=== PATIENT | female | born 1985 | race American Indian/Alaskan Native ===

== ENCOUNTER 2016-07-28 03:58 | Emergency (ER) | payer SELFPAY ==
[2016-07-28 04:33] VITALS: BP 112/74
[2016-07-28 04:48] LABS: Basophils % (Auto) 0.5 % (0.0-1.8); Eosinophils % (Auto) 1.5 % (0.0-4.3); Hematocrit 39.2 % (30.3-42.9); Hemoglobin 13.2 gm/dl (10.1-14.3); Mean Corpuscular HGB Conc 34 % (30-34); Mean Corpuscular Hemoglobin 33 pg (28-32); Mean Corpuscular Volume 99 fl (79-97); Platelet Count 264 K/mm3 (140-440); Red Blood Count 3.96 M/mm3 (3.65-5.03); Red Cell Distribution Width 13.2 % (13.2-15.2); White Blood Count 6.5 K/mm3 (4.5-11.0)
[2016-07-28 05:02] LABS: Blood Urea Nitrogen 14 mg/dL (7-17); Calcium 8.4 mg/dL (8.4-10.2); Carbon Dioxide 26 mmol/L (22-30); Glucose 93 mg/dL (65-100); Potassium 3.8 mmol/L (3.6-5.0); Sodium 141 mmol/L (137-145)
[2016-07-28 05:11] LABS: Anion Gap 16 mmol/L
[2016-07-28 05:38] LABS: Urine Drugs of Abuse Note Disclamer
[2016-07-28 05:52] LABS: Bilirubin,Urine NEG (Negative); Blood,Urine NEG (Negative); Ketones,Urine NEG (Negative); Leukocyte Esterase,Urine NEG (Negative); Mucus,Urine 1+ /HPF; Nitrite,Urine NEG (Negative); Protein,Urine <15 mg/dL mg/dL (Negative)
--- NOTE | 2016-08-01 13:31 | ED Elopement Review ---
ED Pt Elopement review - Results review Lab results: Laboratory Tests 07/28/16 07/28/16 07/28/16 04:35 04:35 04:35 WBC 6.5 RBC 3.96 Hgb 13.2 Hct 39.2 MCV 99 H MCH 33 H MCHC 34 RDW 13.2 Plt Count 264 Lymph % (Auto) 27.0 [place] % (Auto) 8.2 H Eos % (Auto) 1.5 Baso % (Auto) 0.5 Lymph # 1.8 [place] # 0.5 Eos # 0.1 Baso # 0.0 Seg Neutrophils % 62.8 Seg Neutrophils # 4.1 Sodium 141 Potassium 3.8 Chloride 103.0 Carbon Dioxide 26 Anion Gap 16 BUN 14 Creatinine 0.7 Estimated GFR > 60 BUN/Creatinine Ratio 20.00 Glucose 93 Calcium 8.4 Urine Color Urine Turbidity Urine pH Ur Specific [place] Urine Protein Urine Glucose (UA) Urine Ketones Urine Blood Urine Nitrite Urine Bilirubin Urine Urobilinogen Ur Leukocyte Esterase Urine WBC (Auto) Urine RBC (Auto) U Epithel Cells (Auto) Hyaline Casts Urine Mucus Urine HCG, Qual Urine Opiates Screen Urine Methadone Screen Ur Barbiturates Screen Ur Phencyclidine Scrn Ur Amphetamines Screen U Benzodiazepines Scrn Urine Cocaine Screen U Marijuana (THC) Screen Drugs of Abuse Note Plasma/Serum Alcohol < 0.01 07/28/16 07/28/16 05:13 05:13 WBC RBC Hgb Hct MCV MCH MCHC RDW Plt Count Lymph % (Auto) [place] % (Auto) Eos % (Auto) Baso % (Auto) Lymph # [place] # Eos # Baso # Seg Neutrophils % Seg Neutrophils # Sodium Potassium Chloride Carbon Dioxide Anion Gap BUN Creatinine Estimated GFR BUN/Creatinine Ratio Glucose Calcium Urine Color Yellow Urine Turbidity Clear Urine pH 6.0 Ur Specific [place] 1.027 Urine Protein <15 mg/dl Urine Glucose (UA) Neg Urine Ketones Neg Urine Blood Neg Urine Nitrite Neg Urine Bilirubin Neg Urine Urobilinogen 2.0 Ur Leukocyte Esterase Neg Urine WBC (Auto) 2.0 Urine RBC (Auto) 2.0 U Epithel Cells (Auto) 6.0 Hyaline Casts 37 Urine Mucus 1+ Urine HCG, Qual Negative Urine Opiates Screen Presumptive negative Urine Methadone Screen Presumptive negative Ur Barbiturates Screen Presumptive negative Ur Phencyclidine Scrn Presumptive negative Ur Amphetamines Screen Presumptive positive U Benzodiazepines Scrn Presumptive negative Urine Cocaine Screen Presumptive negative U Marijuana (THC) Screen Presumptive positive Drugs of Abuse Note Disclamer Plasma/Serum Alcohol - Call Back decision Pt Call Back Decision: No action required
== END 2016-07-28 20:26 | disposition left against medical advice (07) ==
LOC: ED 03:58
DX: Z00.8 Encounter for other general examination (principal); Z53.21 Procedure and treatment not carried out due to patient leaving prior to being seen by health care provider
CPT/HCPCS: 36415; 80048; 80307; 81001; 81025; 85025; G0480; 80320

== ENCOUNTER 2019-01-20 09:02 | Emergency (ER) | payer MEDICARE, MEDICAID ==
[2019-01-20 09:52] LABS: Basophils % (Auto) 0.5 % (0.0-1.8); Eosinophils # (Auto) 0.1 K/mm3 (0.0-0.4); Eosinophils % (Auto) 1.4 % (0.0-4.3); Hematocrit 39.4 % (30.3-42.9); Hemoglobin 13.5 gm/dl (10.1-14.3); Lymphocytes # (Auto) 2.1 K/mm3 (1.2-5.4); Lymphocytes % (Auto) 37.4 % (13.4-35.0); Mean Corpuscular HGB Conc 34 % (30-34); Mean Corpuscular Volume 96 fl (79-97); Monocytes # (Auto) 0.5 K/mm3 (0.0-0.8); Monocytes % (Auto) 9.9 % (0.0-7.3); Platelet Count 342 K/mm3 (140-440); Red Blood Count 4.12 M/mm3 (3.65-5.03)
[2019-01-20 10:12] LABS: BUN/Creatinine Ratio 24; Blood Urea Nitrogen 19 mg/dL (7-17); Calcium 9.2 mg/dL (8.4-10.2); Hemolysis Index 11
[2019-01-20] MEDS ORDERED: HALDOL IM PRN (11:10)
[2019-01-20] MEDS ORDERED: ATIVAN IM PRN (11:10)
[2019-01-20] MEDS ORDERED: PROVENTIL IH PRN (11:10)
[2019-01-20] MEDS ORDERED: TYLENOL PO PRN (11:10)
--- NOTE | 2019-01-20 11:15 | Emergency Department Report ---
ED Psych HPI - General Chief Complaint: Psych Stated Complaint: NEED MEDS Time Seen by Provider: 01/20/19 10:01 Source: patient, RN notes reviewed Mode of arrival: Ambulatory Limitations: No Limitations - History of Present Illness Initial Comments: This is a pleasant 33-year-old female who was not known to this provider previously. The patient has a past medical history of bipolar disorder and possible psychosis. The patient presents to the ER today with a request for psychiatric evaluation. She states she has been off of her medications, which include lithium, for a few months. She is contemplating suicide. She is evasive about hallucinations. She reports no intentional overdose. She reports access to guns and firearms. She indicates no physical pain. Symptoms constant, painless, do not radiate anywhere, and reportedly did not have exacerbating or relieving factors. MD Complaint: suicidal ideation, feels depressed -: Gradual Associated Psychiatric Symptoms: suicidal ideation History of same: Yes Quality: constant Improves With: none Worsens With: none If Self Harm: admits thoughts of - Related Data Allergies Allergy/AdvReac Type Severity Reaction Status Date / Time ziprasidone HCl [From Geodon] Allergy Anaphylaxis Verified 01/20/19 09:03 ziprasidone mesylate Allergy Anaphylaxis Verified 01/20/19 09:03 [From Geodon] ED Review of Systems ROS: Stated complaint: NEED MEDS Other details as noted in HPI Comment: All other systems reviewed and negative Psychiatric: suicidal thoughts ED Past Medical Hx - Past Medical History Hx Psychiatric Treatment: Yes (Bipolar Schizophrenic) - Surgical History Past Surgical History?: No - Social History Smoking Status: Never Smoker Substance Use Type: Alcohol, Marijuana ED Physical Exam - General Limitations: No Limitations General appearance: alert, in no apparent distress, other (patient sleeping on stretcher one week ago to evaluate her initial) - Head Head exam: Present: atraumatic, normocephalic - Eye Eye exam: Present: normal appearance, EOMI. Absent: nystagmus - ENT ENT exam: Present: normal exam, normal orophraynx, mucous membranes moist, normal external ear exam - Neck Neck exam: Present: normal inspection, full ROM. Absent: tenderness, meningismus - Respiratory Respiratory exam: Present: normal lung sounds bilaterally. Absent: respiratory distress - Cardiovascular Cardiovascular Exam: Present: regular rate, normal rhythm, normal heart sounds. Absent: bradycardia, tachycardia, irregular rhythm, systolic murmur, diastolic murmur, rubs, gallop - GI/Abdominal GI/Abdominal exam: Present: soft. Absent: distended, tenderness, guarding, rebound, rigid, pulsatile mass - Extremities Exam Extremities exam: Present: normal inspection, full ROM, other (2+ pulses noted in the bilateral upper, lower extremities. Compartments soft. No long bony tenderness. The pelvis is stable.). Absent: pedal edema, joint swelling, calf tenderness - Back Exam Back exam: Present: normal inspection, full ROM. Absent: tenderness, CVA tenderness (R), CVA tenderness (L), paraspinal tenderness, vertebral tenderness - Neurological Exam Neurological exam: Present: alert, oriented X3, normal gait, other (Extraocular movements intact. Tongue midline. No facial droop. Facial sensation intact to light touch in the V1, V2, V3 distribution bilaterally. 5 and 5 strength in 4 extremities.. Sensation is intact to light touch in 4 extremities.). Absent: motor sensory deficit - Psychiatric Psychiatric exam: Present: suicidal ideation - Skin Skin exam: Present: warm, dry, intact, normal color. Absent: rash ED Course Vital Signs 01/20/19 09:10 Temperature 97.8 F Pulse Rate 87 Respiratory 20 Rate Blood Pressure 112/75 O2 Sat by Pulse 98 Oximetry - Reevaluation(s) Reevaluation #1: 01/20/19 11:43 [place] level unremarkable. Patient resting comfortably. At this point in time, the patient does not appear to have an immediate medical contraindication to psychiatric admission, evaluation, consultation and placement. Psychiatric team was informed. ED Medical Decision Making - Lab Data Result diagrams: 01/20/19 09:31 01/20/19 09:31 Vital Signs 01/20/19 09:10 Temperature 97.8 F Pulse Rate 87 Respiratory 20 Rate Blood Pressure 112/75 O2 Sat by Pulse 98 Oximetry Lab Results 01/20/19 01/20/19 01/20/19 Range/Units 09:31 09:31 09:31 WBC (4.5-11.0) K/mm3 RBC (3.65-5.03) M/mm3 Hgb (10.1-14.3) gm/dl Hct (30.3-42.9) % MCV (79-97) fl MCH (28-32) pg MCHC (30-34) % RDW (13.2-15.2) % Plt Count (140-440) K/mm3 Lymph % (Auto) (13.4-35.0) % [place] % (Auto) (0.0-7.3) % Eos % (Auto) (0.0-4.3) % Baso % (Auto) (0.0-1.8) % Lymph # (1.2-5.4) K/mm3 [place] # (0.0-0.8) K/mm3 Eos # (0.0-0.4) K/mm3 Baso # (0.0-0.1) K/mm3 Seg Neutrophils % (40.0-70.0) % Seg Neutrophils # (1.8-7.7) K/mm3 Sodium 139 (137-145) mmol/L Potassium 4.3 (3.6-5.0) mmol/L Chloride 101.5 (98-107) mmol/L Carbon Dioxide 24 (22-30) mmol/L Anion Gap 18 mmol/L BUN 19 H (7-17) mg/dL Creatinine 0.8 (0.7-1.2) mg/dL Estimated GFR > 60 ml/min BUN/Creatinine Ratio 24 % Glucose 88 (65-100) mg/dL Calcium 9.2 (8.4-10.2) mg/dL Total Creatine Kinase (30-135) units/L HCG, Qual (Negative) Salicylates < 0.3 L (2.8-20.0) mg/dL Acetaminophen < 5.0 L (10.0-30.0) ug/mL Plasma/Serum Alcohol (0-0.07) % 01/20/19 01/20/19 01/20/19 Range/Units 09:31 09:31 09:31 WBC 5.5 (4.5-11.0) K/mm3 RBC 4.12 (3.65-5.03) M/mm3 Hgb 13.5 (10.1-14.3) gm/dl Hct 39.4 (30.3-42.9) % MCV 96 (79-97) fl MCH 33 H (28-32) pg MCHC 34 (30-34) % RDW 14.0 (13.2-15.2) % Plt Count 342 (140-440) K/mm3 Lymph % (Auto) 37.4 H (13.4-35.0) % [place] % (Auto) 9.9 H (0.0-7.3) % Eos % (Auto) 1.4 (0.0-4.3) % Baso % (Auto) 0.5 (0.0-1.8) % Lymph # 2.1 (1.2-5.4) K/mm3 [place] # 0.5 (0.0-0.8) K/mm3 Eos # 0.1 (0.0-0.4) K/mm3 Baso # 0.0 (0.0-0.1) K/mm3 Seg Neutrophils % 50.8 (40.0-70.0) % Seg Neutrophils # 2.8 (1.8-7.7) K/mm3 Sodium (137-145) mmol/L Potassium (3.6-5.0) mmol/L Chloride (98-107) mmol/L Carbon Dioxide (22-30) mmol/L Anion Gap mmol/L BUN (7-17) mg/dL Creatinine (0.7-1.2) mg/dL Estimated GFR ml/min BUN/Creatinine Ratio % Glucose (65-100) mg/dL Calcium (8.4-10.2) mg/dL Total Creatine Kinase (30-135) units/L HCG, Qual Negative (Negative) Salicylates (2.8-20.0) mg/dL Acetaminophen (10.0-30.0) ug/mL Plasma/Serum Alcohol < 0.01 (0-0.07) % 01/20/19 Range/Units 09:31 WBC (4.5-11.0) K/mm3 RBC (3.65-5.03) M/mm3 Hgb (10.1-14.3) gm/dl Hct (30.3-42.9) % MCV (79-97) fl MCH (28-32) pg MCHC (30-34) % RDW (13.2-15.2) % Plt Count (140-440) K/mm3 Lymph % (Auto) (13.4-35.0) % [place] % (Auto) (0.0-7.3) % Eos % (Auto) (0.0-4.3) % Baso % (Auto) (0.0-1.8) % Lymph # (1.2-5.4) K/mm3 [place] # (0.0-0.8) K/mm3 Eos # (0.0-0.4) K/mm3 Baso # (0.0-0.1) K/mm3 Seg Neutrophils % (40.0-70.0) % Seg Neutrophils # (1.8-7.7) K/mm3 Sodium (137-145) mmol/L Potassium (3.6-5.0) mmol/L Chloride (98-107) mmol/L Carbon Dioxide (22-30) mmol/L Anion Gap mmol/L BUN (7-17) mg/dL Creatinine (0.7-1.2) mg/dL Estimated GFR ml/min BUN/Creatinine Ratio % Glucose (65-100) mg/dL Calcium (8.4-10.2) mg/dL Total Creatine Kinase 209 H (30-135) units/L HCG, Qual (Negative) Salicylates (2.8-20.0) mg/dL Acetaminophen (10.0-30.0) ug/mL Plasma/Serum Alcohol (0-0.07) % - Medical Decision Making Differential diagnosis, including limited to: Mood disorder, psychosis, medical clearance for psychiatric placement, overdose Assessment and plan: 33-year-old female with an unremarkable physical examination, reporting suicidality, placed in a 1013. Screening laboratory studies so far unremarkable, lithium level pending, physical exam unremarkable. Patient has not endorsed any medical complaints at this time. Psychiatric consultation has been requested, if lithium level within normal limits, we will consider the patient medically cleared for psychiatric place ment. Critical care attestation.: If time is entered above; I have spent that time in minutes in the direct care of this critically ill patient, excluding procedure time. ED Disposition Clinical Impression: Medical clearance for psychiatric admission Disposition: [id number]/[id number] PSY HOSP/PSY UNIT Is pt being admited?: No Does the pt Need Aspirin: No Condition: Good
--- NOTE | 2019-01-20 16:00 | Consultation ---
History of Present Illness - Reason for Consult Consult date: 01/20/19 Reason for consult: Mental Heakth Evaluation Requesting physician: STEPHANIE PLUMMER - Chief Complaint Chief complaint: "I just want my meds" - History of Present Psychiatric Illness 33 y.o. AA female who presented to the ER for psy evaluation. Today the patient was agitated during assessment. She was evasive throughout he interview. She would not answer any questions other saying she need her medications. The interview had to be terminated because the patient was became belligerent. Medications and Allergies Allergies Allergy/AdvReac Type Severity Reaction Status Date / Time ziprasidone HCl [From Geodon] Allergy Anaphylaxis Verified 01/20/19 09:03 ziprasidone mesylate Allergy Anaphylaxis Verified 01/20/19 09:03 [From Geodon] Active Meds: Active Medications Acetaminophen (Tylenol) 650 mg PO Q6HR PRN PRN Reason: Pain Albuterol (Proventil) 2.5 mg IH Q4HR PRN PRN Reason: Cough Haloperidol Lactate (Haldol) 5 mg IM Q6HR PRN PRN Reason: Agitation Lorazepam (Ativan) 2 mg IM Q4HR PRN PRN Reason: Agitation Past psychiatric history - Past Medical History Past Medical History: other (Unable to obtain ) Past Surgical History: Other (Unable to obtain ) - past Psychiatric treatment and history psychiatric treatment history: unable to obtain a psy hx and fam psy hx. - Social History Social history: other (Unable to obtain) Mental Status Exam - Vital signs Last Vital Signs Temp 97.8 F 01/20/19 09:10 Pulse 87 01/20/19 09:10 Resp 20 01/20/19 09:10 BP 112/75 01/20/19 09:10 Pulse Ox 98 01/20/19 09:10 - Exam Narrative exam: unable to complete the MSE because of the patient's condition. Results Result Diagrams: 01/20/19 09:31 01/20/19 09:31 Abnormal lab results 01/20/19 01/20/19 01/20/19 Range/Units 09:31 09:31 09:31 MCH (28-32) pg Lymph % (Auto) (13.4-35.0) % [place] % (Auto) (0.0-7.3) % BUN 19 H (7-17) mg/dL Total Creatine Kinase (30-135) units/L Salicylates < 0.3 L (2.8-20.0) mg/dL Acetaminophen < 5.0 L (10.0-30.0) ug/mL 01/20/19 01/20/19 Range/Units 09:31 09:31 MCH 33 H (28-32) pg Lymph % (Auto) 37.4 H (13.4-35.0) % [place] % (Auto) 9.9 H (0.0-7.3) % BUN (7-17) mg/dL Total Creatine Kinase 209 H (30-135) units/L Salicylates (2.8-20.0) mg/dL Acetaminophen (10.0-30.0) ug/mL All other labs normal. Assessment and Plan Assessment and plan: Impression: Today the patient was agitated during the assessment. Recommendation/Plan: Continue 1013 and reassess the patient in 24 [address] Will staff with Dr Christina Collier.
[2019-01-21 03:54] LABS: Benzodiazepines Screen,Urine PRESUMPTIVE NEGATIVE; Cocaine Screen,Urine PRESUMPTIVE NEGATIVE; Methadone Screen,Urine PRESUMPTIVE NEGATIVE; Opiate Screen,Urine PRESUMPTIVE NEGATIVE
[2019-01-21 04:02] LABS: Bacteria,Urine 4+ /HPF (Negative); Bilirubin,Urine NEG (Negative); Blood,Urine NEG (Negative); Color,Urine Yellow (Yellow); Hyaline Casts,Urine 14 /LPF; Mucus,Urine 3+ /HPF; Protein,Urine <15 mg/dL mg/dL (Negative); Urobilinogen,Urine < 2.0 mg/dL (<2.0)
[2019-01-21 04:54] LABS: Amphetamine Screen,Urine PRESUMPTIVE POSITIVE; Cannabinoid Screen,Urine PRESUMPTIVE POSITIVE
[2019-01-21] MEDS: MACROBID PO SCH ×2 (11:03→23:37)
--- NOTE | 2019-01-21 12:32 | Progress Note ---
Subjective - Reason for Consult Consult date: 01/21/19 Reason for consult: Psychiatry Follow-up - Chief Complaint Chief complaint: "I need my medication" 33 y.o. AA female who presented to the ER for psy evaluation. Today the patient was somewhat irritable during the assessment. She stated that she is having marital problem and haven't been ion her medications (Seroquel and [place]). She stated that she does like taking [place] when asked. 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 She stated that she have been self medicating with recreational drugs lately. She would not confirm or deny SI's. She denies HI's and AVH's. Mental Status Exam - Vital signs Last Vital Signs Temp 98.5 F 01/21/19 08:30 Pulse 74 01/21/19 08:30 Resp 16 01/21/19 08:30 BP 102/72 01/21/19 08:30 Pulse Ox 100 01/21/19 08:30 - Exam Narrative exam: MSE: Appearance: in hospital attire Behavior: poor eye contact Speech: regular rate and tone Mood: somewhat irritable Affect: congruent to mood Thought Process: circumstantial Thought Content: denies HI's and AVH's Motor Activity: ambulatory Cognition: A/O x 3 Insight: fair Judgment: poor Assessment and Plan Impression: Unspecified Mood DO. Substance Use DO (amphetamines). Cannabis Use Do. Today the patient was somewhat irritated during the assessment. DDx: Bipolar DO, Substance Induced Mood DO Recommendation/Plan: Continue 1013 and start home medication Seroquel 100 mg PO HS for mood. Discussed possible metabolic side effects of Seroquel with the patient, she verbalized understanding. dispo: The patient was referred to inpatient psy services. Will staff with Dr Christina Collier.
[2019-01-22] MEDS: MACROBID PO SCH (11:10)
--- NOTE | 2019-01-22 11:46 | Progress Note ---
Subjective - Reason for Consult Consult date: 01/22/19 Reason for consult: Psychiatry Follow-up - Chief Complaint Chief complaint: "I have a lot going on" 33 y.o. AA female who presented to the ER for psy evaluation. Today the patient was calm during the assessment. She stated that she suffer from PTSD that stem from trauma experienced as a child. She wasn't be specific about the trauma she experience, but acknowledged that she has nightmares often. She stated that she is "dealing with a lot." She denies SI/HI's and AVH's. Mental Status Exam - Vital signs Last Vital Signs Temp 97.9 F 01/22/19 09:00 Pulse 67 01/22/19 09:00 Resp 16 01/22/19 08:00 BP 108/69 01/22/19 09:00 Pulse Ox 98 01/22/19 08:00 - Exam Narrative exam: MSE: Appearance: in hospital attire Behavior: regular eye contact Speech: regular rate and tone Mood: 'okay" Affect: congruent to mood Thought Process: circumstantial Thought Content: denies SI/HI's and AVH's Motor Activity: ambulatory Cognition: A/O x 3 Insight: variable to fair Judgment: variable to fair Assessment and Plan Impression: Unspecified Mood DO. Substance Use DO (amphetamines). Cannabis Use Do. Additional DDx: PTSD. Today the patient was calm during the assessment. DDx: Bipolar DO, Substance Induced Mood DO Recommendation/Plan: Reevaluate the patient's 1013 in 24 hours. Continue Seroquel 100 mg PO HS for mood. Start Zoloft 50 mg PO daily for depression and Prazosin 1 mg PO HS for PTSD symptoms. Discussed possible metabolic side effects of Seroquel with the patient, she verbalized understanding. Discussed possible suicidality/medication induced velma with the patient reference Zoloft, she verbalized understanding. dispo: If the patient's 1013 is rescinded in 24 hours, she can follow up with [facility] for outpatient psy services. Will staff with Dr Christina Collier.
[2019-01-22] MEDS ORDERED: ZOLOFT PO SCH (12:00)
[2019-01-22 15:44] VITALS: BP 110/79
[2019-01-22] MEDS ORDERED: MINIPRESS PO SCH (22:00)
== END 2019-01-22 19:15 ==
LOC: ED 09:02 → EEVIPCON 09:02 → ED 01-22 19:15
DX: F32.9 Major depressive disorder, single episode, unspecified (principal); R45.851 Suicidal ideations; F31.9 Bipolar disorder, unspecified; F12.10 Cannabis abuse, uncomplicated
CPT/HCPCS: 36415; 80048; 80178; 80307; 80320; 81001; 82550; 84703; 85025; 87076; 87086; 87186; G0480